=== PATIENT | female | born 2000 | race Two or more races ===

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

== ENCOUNTER 2019-08-31 15:20 | Emergency (ER) | payer OTHER ==
[~2019-08-31] VITALS: Ht 154.9 cm; Wt 48.1 kg
[~2019-08-31 15:20] MED LIST changes: +LEVSIN/SL0.125 MG SL; +PEPCID40 MG PO; +ZOFRAN4 MG PO
== END 2019-08-31 22:12 | disposition home or self-care (01) ==
LOC: ER 15:20
DX: N83.291 Other ovarian cyst, right side (principal); R10.31 Right lower quadrant pain

== ENCOUNTER 2020-12-06 14:41 | Emergency (ER) | payer OTHER ==
[~2020-12-06] VITALS: Ht 157.5 cm; Wt 47.2 kg
[2020-12-06] MEDS ORDERED: PEPCID AC20 MG PO (19:26)
[2020-12-06] MEDS ORDERED: ONDANSETRON HCL4 MG PO (19:26)
[2020-12-06] MEDS ORDERED: INTESTINEX680 M1 PO (19:26)
[2020-12-06] MEDS ORDERED: ACETAMINOPHEN650 M2 PO (19:26)
== END 2020-12-06 19:35 | disposition home or self-care (01) ==
LOC: ER 14:41
DX: K52.9 Noninfective gastroenteritis and colitis, unspecified (principal); E86.0 Dehydration; Z23 Encounter for immunization

== ENCOUNTER 2021-01-30 12:18 | Emergency (ER) | payer OTHER ==
[~2021-01-30] VITALS: Ht 157.5 cm; Wt 47.2 kg
[~2021-01-30 12:18] MED LIST changes: +ACETAMINOPHEN650 M2 PO; +INTESTINEX680 M1 PO; +ONDANSETRON HCL4 MG PO; +PEPCID AC20 MG PO
== END 2021-01-30 19:18 | disposition home or self-care (01) ==
LOC: ER 12:18
DX: R10.9 Unspecified abdominal pain (principal)

== ENCOUNTER 2021-07-12 09:09 | Emergency (ER) | payer OTHER ==
[~2021-07-12] VITALS: Ht 154.9 cm; Wt 47.2 kg
== END 2021-07-12 11:10 | disposition home or self-care (01) ==
LOC: ER 09:09
DX: B34.9 Viral infection, unspecified (principal); Z20.822 Contact with and (suspected) exposure to COVID-19

== ENCOUNTER 2024-06-26 16:49 | Emergency (ER) | payer OTHER ==
[~2024-06-26] VITALS: Ht 154.9 cm; Wt 48.5 kg
[2024-06-26] MEDS ORDERED: KETOROLAC TROMETHAMINE 60 MG VIAL IM ONE (18:30)
[2024-06-26] MEDS ORDERED: FAMOtidine 10 MG/ML (4ML VIAL) IV ONE (18:30)
[2024-06-26 18:44] LABS: HEMATOCRIT 36.8 % (36.0-45.00); HEMOGLOBIN 12.1 g/dL (12.0-15.00); MEAN CELL VOLUME 85.3 fL (80.00-100.00); MEAN CORPUSCULAR HGB CONC 32.8 g/dl (32.0-36.0); PLATELET COUNT 243 K/uL (150-450); RED BLOOD COUNT 4.31 M/uL (4.00-6.00); RED CELL DISTRIBUTION WIDTH 12.7 % (11.5-14.5)
[2024-06-26] MEDS ORDERED: NORFLEX100MG PO (21:13)
[2024-06-26 21:25] LABS: PH,URINE 5.5 (5.0-8.0); URINE APPEARANCE Clear; URINE BILIRRUBIN Negative (NEGATIVE); URINE COLOR Yellow; URINE GLUCOSE Negative (NEGATIVE); URINE KETONE Negative (NEGATIVE); URINE LEUKOCYTE Negative; URINE NITRATE Negative; URINE PROTEIN Negative (NEGATIVE); URINE UROBILINOGEN 0.2 E.U./dl
[2024-06-26 21:27] LABS: URINE BACTERIA 313.3 uL (0.0-1933); URINE EPITHELIAL CELLS 15.3 uL (0.0-38.8); URINE RBC 10.3 uL (0.0-20.8); URINE WBC 13.9 uL (0.0-23.2)
[2024-06-26 21:39] LABS: URINE BLOOD TRACE; URINE CAST 0.14 uL (0.0-1.40)
== END 2024-06-26 21:19 | disposition home or self-care (01) ==
LOC: ER 16:51
PROVIDERS: General Practice
DX: N83.292 Other ovarian cyst, left side (principal); Z91.038 Other insect allergy status

== ENCOUNTER 2024-06-28 07:18 | Outpatient (CLI) | payer OTHER ==
[~2024-06-28 07:18] MED LIST changes: +NORFLEX100MG PO
== END 2024-06-28 07:25 | disposition home or self-care (01) ==
LOC: SONOGRAMA 07:18
DX: R10.13 Epigastric pain (principal)